=== PATIENT | male | born 1955 | race Caucasian/White ===

== ENCOUNTER 2018-07-01 07:01 | Day surgery (SDC) | payer OTHER ==
[2018-06-29 09:37] VITALS: BMI 36.8
[2018-07-01] MEDS ORDERED: PROPOFOL 20 ML ONE ×3 (07:41→08:15)
[2018-07-01] MEDS ORDERED: LIDOCAINE HCL/PF 2% SDV 5ML VIAL ONE (07:41)
[2018-07-01 09:05] VITALS: PULSE 62; TEMP 97.6
[2018-07-01 09:24] VITALS: BP 142/84
--- NOTE | 2018-07-05 13:12 | PATH ---
Surgical Pathology Report Patient Name: MYRANDA ALAMO [facility]. Rec. #: [id number] /Age/Gender: 1955 (Age: 62) / M Account: [id number] Location: [facility] Taken: 07/01/2018 Received: 07/01/2018 Reported: 07/05/2018 Physicians: Carlin Fair M.D. Specimen(s) Received A: DUODENUM BIOPSY B: ANTRUM BIOPSY Clinical History Rule out colon cancer, GERD Postoperative diagnosis: Gastritis, diverticulosis Final Diagnosis A. DUODENUM, BIOPSY: DUODENAL MUCOSA WITHOUT SIGNIFICANT PATHOLOGIC FINDINGS. B. STOMACH, ANTRUM, BIOPSY: GASTRIC ANTRAL MUCOSA WITH MILD CHRONIC GASTRITIS. IMMUNOHISTOCHEMICAL STAIN FOR H. PYLORI IS NEGATIVE. Electronically Signed Lilibeth Stauffer M.D. Gross Description A. Received in formalin, labeled "duodenum biopsy" are 2 martin, irregular portions of soft tissue averaging 0.3 cm. in greatest dimension. The specimens are submitted in toto in one cassette. B. Received in formalin, labeled "antrum biopsy" are 2 martin, irregular portions of soft tissue measuring 0.5 and 0.6 cm. in greatest dimension. The specimens are submitted in toto in one cassette. 07/02/201807/02/2018
== END 2018-07-01 09:30 | disposition home or self-care (01) ==
LOC: FASU-ENDO 07:01
PROVIDERS: ATTEND Internal Medicine Gastroenterology
PROC: 0DB98ZX Excision of Duodenum, Via Natural or Artificial Opening Endoscopic, Diagnostic (ICD-10-PCS; 2018-07-01)
PROC: 0DB68ZX Excision of Stomach, Via Natural or Artificial Opening Endoscopic, Diagnostic (ICD-10-PCS; 2018-07-01)
PROC: 0DJD8ZZ Inspection of Lower Intestinal Tract, Via Natural or Artificial Opening Endoscopic (ICD-10-PCS; principal; 2018-07-01 08:24)
DX: Z12.11 Encounter for screening for malignant neoplasm of colon (principal); K57.30 Diverticulosis of large intestine without perforation or abscess without bleeding; K58.9 Irritable bowel syndrome, unspecified; K29.50 Unspecified chronic gastritis without bleeding
CPT/HCPCS: 82962; 88305-TC; 88342-TC